=== PATIENT | male | born 1945 | race African-American/Black ===

== ENCOUNTER 2021-09-12 09:41 | Emergency (ER) | payer MEDICARE, OTHER ==
[2021-09-12] MEDS ORDERED: methylPREDNISolone Acetate 40 mg/ml Vial ONE (11:15)
[2021-09-12] MEDS ORDERED: methylPREDNISolone Sod Succ/PF 125 MG/2 ML VIAL ONE (11:17)
[2021-09-12] MEDS ORDERED: Albuterol Sulfate 2.5 mg/3 ml Neb ONE (11:27)
[2021-09-12] MEDS ORDERED: Ipratropium Bromide 2.5 ml Neb ONE (11:27)
[2021-09-12 11:33] LABS: ALT (SGPT) 21 U/L (8-55); AST (SGOT) 26 U/L (5-34); Albumin 3.9 g/dL (3.4-4.8); Alkaline Phosphatase 74 U/L (40-110); Anion Gap 13 mmol/L (10-20); BUN (Urea Nitrogen) 11 mg/dL (8.4-25.7); Bilirubin, Total 0.4 mg/dL (0.2-1.2); Calc. Creatinine Clearance 0 mL/min (70-130); Calcium 9.5 mg/dL (7.8-10.44); Carbon Dioxide 29 mmol/L (23-31); Chloride 102 mmol/L (98-107); Globulin 3.3 g/dL (2.4-3.5); Glucose 116 mg/dL (83-110); Potassium 4.4 mmol/L (3.5-5.1); Protein, Total 7.2 g/dL (5.8-8.1); Sodium 140 mmol/L (136-145)
[2021-09-12 11:53] LABS: Hemoglobin 15.9 g/dL (14.0-18.0); Mean Corpuscular HGB CONC 32.5 g/dL (32.0-36.0); Mean Corpuscular Hemoglobin 30.8 pg (27.0-31.0); Mean Corpuscular Volume 94.8 fL (78.0-98.0); Mean Platelet Volume 8.3 fL (7.4-10.4); Platelet Count 147 thou/uL (130-400); Red Blood Cell (RBC) Count 5.16 mill/uL (4.70-6.10)
[2021-09-12 11:56] LABS: Band 2 % (5-11); Eosinophils 2 % (0-10); Lymphocytes 21 % (21-51); MDiff Complete? YES; Monocytes 8 % (0-10); Neutrophil 67 % (42-75); Platelet Morphology Comment Appears Adequate; RBC Morphology Normal
== END 2021-09-12 13:27 | disposition home or self-care (01) ==
LOC: BURERS 09:41
DX: J44.1 Chronic obstructive pulmonary disease with (acute) exacerbation (principal); F17.210 Nicotine dependence, cigarettes, uncomplicated
CPT/HCPCS: 36415; 71045; 80053; 83880; 84484; 85025; 93005; 96374; J2920; J2930; J7611

== ENCOUNTER 2024-08-11 20:35 | Emergency (ER) | payer MEDICARE | END 2024-08-11 21:20 | disposition home or self-care (01) | LOC: BURERS 20:35 | DX: J44.89 Other specified chronic obstructive pulmonary disease (principal); I10 Essential (primary) hypertension; Z79.899 Other long term (current) drug therapy ==